=== PATIENT | male | born 1945 | race Caucasian/White ===

== ENCOUNTER 2016-08-22 13:54 | Emergency (ER) | payer MEDICARE ==
[2016-08-22 13:54] VITALS: BMI 25.9
[2016-08-22 15:15] LABS: BASO # 0.1 K/uL (0.0-0.2); BASO % 0.9 % (0.0-2.0); EOS # 0.2 K/uL (0.0-0.7); EOS % 3.1 % (0.0-4.0); HEMATOCRIT 42.2 % (35.0-51.0); LYMPH # 1.1 K/uL (1.0-4.3); LYMPH % 20.6 % (20.0-40.0); MEAN CELL VOLUME 80.9 fL (80.0-94.0); MEAN CORPUSCULAR HEMOGLOBIN 25.1 pg (27.0-31.0); MEAN PLATELET VOLUME 8.9 fL (7.2-11.7); MONO # 0.7 K/uL (0.0-0.8); MONO % 12.4 % (0.0-10.0); NRBC % 0.1 % (0.0-2.0); RED CELL DISTRIBUTION WIDTH 16.1 % (11.5-14.5); WHITE BLOOD COUNT 5.6 K/uL (4.8-10.8)
[2016-08-22 15:23] LABS: INR 1.5
[2016-08-22 15:40] LABS: CHLORIDE 104 mmol/L (98-107); SODIUM 135 mmol/L (132-148)
[2016-08-22 15:42] LABS: GFR AFRICAN-AMERICAN > 60
[2016-08-22 15:43] LABS: ALKALINE PHOSPHATASE 66 U/L (38-126); ALT/SGPT 40 U/L (21-72); AST/SGOT 27 U/L (17-59); BILIRUBIN,TOTAL 0.6 mg/dL (0.2-1.3); BLOOD UREA NITROGEN 18 mg/dL (9-20); CALCIUM 8.1 mg/dl (8.6-10.4); CARBON DIOXIDE 26 mmol/L (22-30); GLUCOSE,RANDOM 89 mg/dL (75-110)
--- NOTE | 2016-08-22 16:00 | C.PDOC ---
History Of Present Illness 70 year old male presents to the ED with complaints of shortness of breath since 5 am. Patient notes symptoms exacerbated by walking even a few steps and with exertion. He admits to feeling weak yesterday and having a slight headache , but symptoms resolved without medication. Patient notes history of atrial fibrillation, he is compliant with medication. As per patient was seen by [place] [place], Dr Carmine Haynes at [facility] 3 weeks ago for cardiac echo and cardiac catherization. Denies any chest pain, numbness or weakness. Time Seen by Provider: 08/22/16 14:43 Chief Complaint (Nursing): Shortness Of Breath History Per: Patient History/Exam Limitations: no limitations Onset/Duration Of Symptoms: Hrs Current Symptoms Are (Timing): Still Present Exacerbating Factor(s): Exertion, Laying Flat Current Respiratory Medications: See Home Med List Associated Symptoms: denies: Fever, Chills, Chest Pain, Leg/Calf Pain Recent travel outside of the [place]: No Past Medical History Reviewed: Historical Data, Nursing Documentation, Vital Signs Vital Signs: Last Vital Signs Temp 98.6 F 08/22/16 18:25 Pulse 60 08/22/16 18:25 Resp 14 08/22/16 18:25 BP 209/118 H 08/22/16 18:25 Pulse Ox 98 08/22/16 18:25 - Medical History PMH: Atrial Fibrillation, Cardia Arrhythmia, Deep Vein Thrombosis, Gall Bladder Disease, HTN, Hypercholesterolemia, Kidney Stones, TIA Surgical History: Cholecystectomy, Coronary Stent - [facility] Procedures CORONAR ARTERIOGR-2 CATH (02/19/12) CORONARY ARTERY STENT INSERTION [id number] (02/19/12) INSERTION OF ONE VASCULAR STENT (05/06/12) INSRT OF DRUG-ELUTING CORON ARTERY STENTS(S) (05/06/12) LEFT HEART CARDIAC CATH (02/19/12) LT HEART ANGIOCARDIOGRAM (02/19/12) PERCUTANEOUS TRANSLUMINAL CORONARY ANGIOPLASTY [PTCA] (05/06/12) PROCEDURE ON SINGLE VESSEL (05/06/12) Family History: States: Unknown Family Hx - Social History Hx Tobacco Use: No Hx Alcohol Use: No Hx Substance Use: No - Immunization History Hx Tetanus Toxoid Vaccination: No Hx Influenza Vaccination: Yes Hx Pneumococcal Vaccination: Yes Review Of Systems Constitutional: Negative for: Fever, Chills, Sweats Cardiovascular: Negative for: Chest Pain, Palpitations Respiratory: Positive for: Shortness of Breath, SOB with Excertion. Negative for: Cough Gastrointestinal: Negative for: Nausea, Vomiting, Abdominal Pain, Diarrhea Neurological: Negative for: Headache, Dizziness Physical Exam - Physical Exam Appears: Non-toxic, No Acute Distress Skin: Warm, Dry Head: Atraumatic, Normacephalic Eye(s): bilateral: Normal Inspection, EOMI Nose: Normal Oral Mucosa: Moist Neck: Supple Chest: Symmetrical, No Deformity, No Tenderness Cardiovascular: Rhythm Irregular Respiratory: No Decreased Breath Sounds, No Rales, No Rhonchi, No Stridor, No Wheezing Gastrointestinal/Abdominal: Soft, No Tenderness, No Distention, No Guarding, No Rebound Extremity: Normal ROM, No Tenderness, No Pedal Edema, No Calf Tenderness, No Swelling Neurological/Psych: Oriented x3, Normal Speech Gait: Steady ED Course And Treatment - Laboratory Results Result Diagrams: 08/22/16 15:10 08/22/16 15:10 Lab Interpretation: No Acute Changes ECG: Interpreted By Me, Viewed By Me ECG Rhythm: Sinus Bradycardia, 1st Degree HB ECG Interpretation: No Acute Changes Interpretation Of ECG: EKG unchanged since February 2016. Rate From EC O2 Sat by Pulse Oximetry: 95 (room air ) Pulse Ox Interpretation: Normal - Radiology CXR: Interpreted by Me, Viewed By Me CXR Interpretation: Yes: No Acute Disease - CT Scan/US CT CHEST WITH CONTRAST Other Rad Studies (CT/US): Read By Radiologist, Radiology Report Reviewed CT/US Interpretation: PROCEDURE: CT Chest with contrast (Pulmonary Angiogram). HISTORY: SOB. COMPARISON: None available. TECHNIQUE: Axial computed tomography images were obtained of the chest in the pulmonary arterial phase of enhancement. Coronal and sagittal reformatted images were created and reviewed. Intravenous contrast dose: 100 mL Visipaque. Radiation dose: Total exam DLP = 467.76 mGy-cm. This CT exam was performed using one or more of the following dose reduction techniques: Automated exposure control, adjustment of the mA and/ or kV according to patient size, and/or use of iterative reconstruction technique. FINDINGS: PULMONARY ARTERIES: There are no filling defects in the central pulmonary arteries or segmental branches to suggest acute pulmonary embolism. . AORTA: There is mild dilatation of the ascending aorta which measures 4.4 x 4.1 cm. LUNGS: There is diffuse centrilobular emphysema with upper lobe predominance. There is mild paraseptal emphysema in the upper lobes. There is biapical pleural parenchymal thickening. There is a 5 mm calcified granuloma in the right lung base. There is minimal bibasilar atelectasis. There is no focal consolidation. There are no endobronchial lesions. PLEURAL SPACES: Unremarkable. No effusion orpneumothorax. HEART: The heart is normal in size. No pericardial effusion. LYMPH NODES: No lymphadenopathy. BONES, CHEST WALL: Within normal limits for the patient's age. No fracture or destructive lesion. OTHER FINDINGS: The right adrenal gland is normal. There is a 11 mm adenoma in the left adrenal gland. Status post cholecystectomy. IMPRESSION: 1. No CTA evidence for acute pulmonary embolism. 2. Mild aneurysmal dilatation of the ascending aorta. 3. Diffuse centrilobular emphysema with upper lobe predominance and mild biapical paraseptal emphysema. No evidence of focal consolidation, pneumothorax or pleural effusion. Medical Decision Making Medical Decision Making: Plan: * EKG * Chest X-Ray * Labs Progress: 1632 All labs reviewed and unremarkable. Patient reevaluated and in no acute distress however still reports he feels short of breath intermittently. playground monitor shows sinus bradycardia. Discussed case with attending and Ct chest ordered to rule out PE. 1810 CT shows no PE, diffuse emphysema. 1812 Patient reevaluated and resting comfortable in no acute distress. I discussed results with patient and family (HIPAA compliant), and provide copy of reports. Patient has no fever and oxygen saturation is 98% on room air. 1828 RN informs me patient hypertensive, catapres ordered. Patient stable for discharge and recommend follow up with PCP and buccaro. Disposition Counseled Patient/Family Regarding: Diagnosis, Need For Followup, Rx Given - Disposition Disposition: HOME/ ROUTINE Disposition Time: 18:35 Condition: STABLE Additional Instructions: La TC del trax no muestra cogulo, muestra enfisema Utilice el inhalador segn sea necesario para cualquier falta de aliento Contine con sedrick medicamentos habituales Es importante que usted siga con mckeon mdico de cabecera y cardilogo Regrese al servicio de urgencias en cualquier momento si los sntomas persisten o empeoran. Prescriptions: Albuterol HFA [Ventolin HFA 90 mcg/actuation (8 g)] 1 puff IH Q4 #1 puff Instructions: Emphysema (ED) Print Language: MALAGASY - POA Present On Arrival: None - Clinical Impression Clinical Impression: Dyspnea, Emphysema of lung - Scribe Statement Krista Murillo All medical record entries made by the Scribe were at my direction and personally dictated by me. I have reviewed the chart and agree that the record accurately reflects my personal performance of the history, physical exam, medical decision making, and the department course for this patient. I have also personally directed, reviewed, and agree with the discharge instructions and disposition.
[2016-08-22] MEDS ORDERED: Iodixanol 320 MG/ML 100 ML BOTTLE IV ONE (17:35)
--- NOTE | 2016-08-22 18:08 | CT ---
PROCEDURE: CT Chest with contrast (Pulmonary Angiogram) HISTORY: SOB COMPARISON: None available. TECHNIQUE: Axial computed tomography images were obtained of the chest in the pulmonary arterial phase of enhancement. Coronal and sagittal reformatted images were created and reviewed. Intravenous contrast dose: 100 mL Visipaque Radiation dose: Total exam DLP = 467.76 mGy-cm. This CT exam was performed using one or more of the following dose reduction techniques: Automated exposure control, adjustment of the mA and/or kV according to patient size, and/or use of iterative reconstruction technique. FINDINGS: PULMONARY ARTERIES: There are no filling defects in the central pulmonary arteries or segmental branches to suggest acute pulmonary embolism. . AORTA: There is mild dilatation of the ascending aorta which measures 4.4 x 4.1 cm. LUNGS: There is diffuse centrilobular emphysema with upper lobe predominance. There is mild paraseptal emphysema in the upper lobes. There is biapical pleural parenchymal thickening. There is a 5 mm calcified granuloma in the right lung base. There is minimal bibasilar atelectasis. There is no focal consolidation. There are no endobronchial lesions. PLEURAL SPACES: Unremarkable. No effusion orpneumothorax. HEART: The heart is normal in size. No pericardial effusion. LYMPH NODES: No lymphadenopathy. BONES, CHEST WALL: Within normal limits for the patient's age. No fracture or destructive lesion OTHER FINDINGS: The right adrenal gland is normal. There is a 11 mm adenoma in the left adrenal gland. Status post cholecystectomy. IMPRESSION: 1. No CTA evidence for acute pulmonary embolism. 2. Mild aneurysmal dilatation of the ascending aorta. 3. Diffuse centrilobular emphysema with upper lobe predominance and mild biapical paraseptal emphysema. No evidence of focal consolidation, pneumothorax or pleural effusion.
[2016-08-22 18:32] VITALS: TEMP 98.6
--- NOTE | 2016-08-22 18:45 | RAD ---
HISTORY: Shortness of breath COMPARISON: 11/21/2015 TECHNIQUE: Chest PA and lateral FINDINGS: LUNGS: The lungs are clear. PLEURA: No significant pleural effusion identified. No pneumothorax apparent. CARDIOVASCULAR: Normal. OSSEOUS STRUCTURES: No significant abnormalities. VISUALIZED UPPER ABDOMEN: Normal. OTHER FINDINGS: None. IMPRESSION: No active pulmonary disease.
[2016-08-22 19:11] VITALS: O2SAT 98
[2016-08-22 19:25] VITALS: BP 190/108; PULSE 55; RESP 16
== END 2016-08-22 19:25 | disposition home or self-care (01) ==
LOC: C.ER 13:54
DX: J43.9 Emphysema, unspecified (principal); R06.00 Dyspnea, unspecified; I10 Essential (primary) hypertension
CPT/HCPCS: 71020; 71275; 80053; 83880; 84484; 85025; 85610; 85730; 99285; Q9967

== ENCOUNTER 2016-12-25 07:34 | Day surgery (SDC) | payer MEDICARE ==
[2016-12-25 08:27] VITALS: BMI 26.4
[2016-12-25] MEDS ORDERED: Lidocaine Hydrochloride 5 ML INJ ONE (11:25)
[2016-12-25] MEDS ORDERED: Propofol 10 mg/ml Inj (20 ML) ONE (11:25)
--- NOTE | 2016-12-25 11:25 | CP.SDSHP ---
Same Day Surgery H & P - History Proposed Procedure: colonoscopy Pre-Op Diagnosis: screening - Previous Medical/Surgical History Cardiac: Hypertension, ASHD/CAD - Allergies Allergies: Allergies No Known Allergies Allergy (Verified 08/22/16 14:07) - Physical Exam Vital Signs: Vital Signs 12/25/16 08:54 Temperature 96.9 F L Pulse Rate 52 L Respiratory 19 Rate Blood Pressure 159/97 H O2 Sat by Pulse 97 Oximetry Mental Status: Alert & Oriented x3 Neuro: WNL Heart: WNL Lungs: WNL GI: WNL - {Optional Preform as Required} Abdomen: WNL - Impression Impression: screening Pt. Evaluated Today:Candidate for Anesthesia & Procedure: Yes - Date & Time Date: 12/25/16 Time: 11:10 Short Stay Discharge - Short Stay Discharge Admitting Diagnosis/Reason for Visit: ENCOUNTER FOR SCREENING FOR MALIGNANT NEOPLASM OF Disposition: HOME/ ROUTINE
[2016-12-25 12:23] VITALS: TEMP 98.4
[2016-12-25 12:25] VITALS: RESP 16
[2016-12-25 14:17] VITALS: BP 170/99; PULSE 51; O2SAT 99
== END 2016-12-25 13:05 | disposition home or self-care (01) ==
LOC: C.ENDO 07:34
PROVIDERS: ATTEND Internal Medicine Gastroenterology
DX: K63.5 Polyp of colon (principal); K64.8 Other hemorrhoids
CPT/HCPCS: 45388; 88305; J2704

== ENCOUNTER 2017-12-06 13:13 | Emergency (ER) | payer MEDICARE ==
[2017-12-06 13:13] VITALS: BMI 26.4
[2017-12-06] MEDS ORDERED: Aspirin 325 mg EC Tablets PO STA (13:59)
[2017-12-06] MEDS ORDERED: Albuterol-Ipratrop 3 mg / 0.5 (3 ml) UD INH STA (14:01)
[2017-12-06 14:02] VITALS: RESP 18; TEMP 97.7
[2017-12-06 14:16] LABS: BASO % 0.4 % (0.0-2.0); EOS # 0.2 K/uL (0.0-0.7); EOS % 2.9 % (0.0-4.0); HEMOGLOBIN 14.5 g/dL (12.0-18.0); LYMPH # 1.3 K/uL (1.0-4.3); LYMPH % 20.9 % (20.0-40.0); MEAN CELL VOLUME 80.2 fL (80.0-94.0); MEAN CORPUSCULAR HEMOGLOBIN 27.5 pg (27.0-31.0); MEAN CORPUSCULAR HGB CONC 34.3 g/dL (33.0-37.0); MONO # 0.7 K/uL (0.0-0.8); MONO % 11.2 % (0.0-10.0); NEUT % 64.6 % (50.0-75.0); NRBC % 0.1 % (0.0-2.0); RBC 5.25 Mil/uL (4.40-5.90); RED CELL DISTRIBUTION WIDTH 16.2 % (11.5-14.5); WHITE BLOOD COUNT 6.1 K/uL (4.8-10.8)
[2017-12-06 14:36] LABS: ALB/GLOB RATIO 1.1 (1.0-2.1); ALBUMIN 3.8 g/dL (3.5-5.0); ALT/SGPT 28 U/L (21-72); AST/SGOT 25 U/L (17-59); BLOOD UREA NITROGEN 19 mg/dL (9-20); CALCIUM 8.6 mg/dl (8.6-10.4); GFR NON-AFRICAN AMERICAN > 60
--- NOTE | 2017-12-06 14:37 | C.PDOC ---
History Of Present Illness 72yo male, comes to ER reporting a digitally and positionally reproducible left wall chest pain x 4 days. Patient also states he has been lifting his infant grandson a lot lately. Patient reports occasional substernal chest pressure and shortness of breath but denies any at present. He offers no additional medical complaints. Time Seen by Provider: 12/06/17 13:45 Chief Complaint (Nursing): Chest Pain History Per: Patient History/Exam Limitations: no limitations Onset/Duration Of Symptoms: Days Current Symptoms Are (Timing): Still Present Past Medical History Reviewed: Historical Data, Nursing Documentation, Vital Signs Vital Signs: Last Vital Signs Temp 97.7 F 12/06/17 13:20 Pulse 52 L 12/06/17 13:20 Resp 18 12/06/17 13:20 BP 149/84 12/06/17 13:20 Pulse Ox 100 12/06/17 13:20 - Medical History PMH: Atrial Fibrillation, Cardia Arrhythmia, Deep Vein Thrombosis, Emphysema, Gall Bladder Disease, HTN, Hypercholesterolemia, Kidney Stones, Chronic Kidney Disease Surgical History: Cholecystectomy, Coronary Stent (x4) - [facility] Procedures CORONAR ARTERIOGR-2 CATH (02/19/12) CORONARY ARTERY STENT INSERTION [id number] (02/19/12) INSERTION OF ONE VASCULAR STENT (05/06/12) INSRT OF DRUG-ELUTING CORON ARTERY STENTS(S) (05/06/12) LEFT HEART CARDIAC CATH (02/19/12) LT HEART ANGIOCARDIOGRAM (02/19/12) PERCUTANEOUS TRANSLUMINAL CORONARY ANGIOPLASTY [PTCA] (05/06/12) PROCEDURE ON SINGLE VESSEL (05/06/12) Family History: States: Unknown Family Hx - Social History Hx Tobacco Use: No Hx Alcohol Use: No Hx Substance Use: No - Immunization History Hx Tetanus Toxoid Vaccination: Yes (2013) Hx Influenza Vaccination: Yes Hx Pneumococcal Vaccination: Yes Review Of Systems Except As Marked, All Systems Reviewed And Found Negative. Constitutional: Negative for: Fever, Chills Cardiovascular: Positive for: Chest Pain Respiratory: Negative for: Shortness of Breath Gastrointestinal: Negative for: Abdominal Pain Physical Exam - Physical Exam Appears: Non-toxic, No Acute Distress Skin: Normal Color, Warm, Dry Head: Atraumatic, Normacephalic Eye(s): bilateral: Normal Inspection Neck: Normal ROM, Supple Chest: Symmetrical, Tenderness (point tenderness to lfet chest wall midlclavicular line around T4/T5) Cardiovascular: Rhythm Regular Respiratory: Normal Breath Sounds, No Rales, No Rhonchi, No Wheezing Gastrointestinal/Abdominal: Normal Exam Back: Normal Inspection Extremity: Normal ROM Neurological/Psych: Oriented x3 ED Course And Treatment - Laboratory Results Result Diagrams: 12/06/17 14:05 12/06/17 14:05 Lab Interpretation: Normal ECG: Interpreted By Me ECG Rhythm: Sinus Rhythm ECG Interpretation: Normal Rate From EC O2 Sat by Pulse Oximetry: 100 (RA) Pulse Ox Interpretation: Normal - Radiology CXR: Interpreted by Me CXR Interpretation: Yes: No Acute Disease Reevaluation Time: 15:02 Reassessment Condition: Improved - Physician Consult Information Outcome Of Conversation: 1500: d/w Dr. 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 feels well, no sob. L chest wall discomfort improved with NSAIDS/ice Medical Decision Making Medical Decision Making: copd normal labs L chest wall costochondritis, prob related to lifting the 20# grandson no rash to suggest zoster. 1850: pt decided he'd prefer to be d'c appreciates the pain of L chest is musculoskletal and labs/cardiac w/u neg. clear lungs no rash to concern for Zoster may f/u as opt. ice/NSAIDS educated. Dr. Gianfranco Patino- admitting Dr. Yi. Disposition Doctor Will See Patient In The: Office Counseled Patient/Family Regarding: Studies Performed, Diagnosis - Disposition Referrals: Amy Patino MD [Staff Provider] - Disposition: HOSPITALIZED Disposition Time: 15:04 Condition: GOOD Additional Instructions: sigue con hielo 1/2 hora por hora, nada caliente ibuprofeno 400 cada 6 horas bhumi necessario Sigue con Dr. Patino o' mckeon medico de cabezera bhumi necessario. Instructions: Chronic Obstructive Pulmonary Disease (COPD), Including Emp hysema, Costochondritis Forms: [facility] ([place]) Print Language: CITIZEN OF [place] - Clinical Impression Clinical Impression: Chest wall discomfort, COPD (chronic obstructive pulmonary disease) - Scribe Statement The provider has reviewed the documentation as recorded by the Scribe Christine Thompson Provider Attestation: All medical record entries made by the Scribe were at my direction and personally dictated by me. I have reviewed the chart and agree that the record accurately reflects my personal performance of the history, physical exam, medical decision making, and the department course for this patient. I have also personally directed, reviewed, and agree with the discharge instructions and disposition.
[2017-12-06 14:41] LABS: B-TYPE NATRIURETIC PEPTIDE 86.5 pg/mL (0-900)
--- NOTE | 2017-12-06 17:27 | RAD ---
Date of service: 12/06/2017 PROCEDURE: CHEST RADIOGRAPH, 1 VIEW HISTORY: SOB COMPARISON: Comparison made with chest radiograph dated 10/28/2017. FINDINGS: LUNGS: There is slight tenting of the right hemidiaphragm with presumed minor scarring in the adjacent lung parenchyma. Mild left basilar atelectasis. PLEURA: No pneumothorax or pleural fluid seen. CARDIOVASCULAR: Heart appears borderline/mildly enlarged. OSSEOUS STRUCTURES: No significant abnormalities. VISUALIZED UPPER ABDOMEN: Normal. OTHER FINDINGS: None. IMPRESSION: slight tenting of the right hemidiaphragm with presumed minor scarring in the adjacent lung parenchyma. Mild left basilar atelectasis.
[2017-12-06 17:30] VITALS: BP 122/82; PULSE 54
[2017-12-06 18:51] VITALS: O2SAT 100
== END 2017-12-06 19:13 | disposition home or self-care (01) ==
LOC: C.ER 13:13
DX: J44.9 Chronic obstructive pulmonary disease, unspecified (principal); R07.89 Other chest pain; E78.00 Pure hypercholesterolemia, unspecified; I48.91 Unspecified atrial fibrillation; I12.9 Hypertensive chronic kidney disease with stage 1 through stage 4 chronic kidney disease, or unspecified chronic kidney disease; N18.9 Chronic kidney disease, unspecified